=== PATIENT | female | born 1995 | race Caucasian/White ===

== ENCOUNTER 2019-07-01 15:04 | Outpatient (CLI) | payer OTHER | END 2019-07-01 15:05 | disposition home or self-care (01) | LOC: COV 15:04 | PROVIDERS: ATTEND Family Medicine | DX: R05 Cough (principal); R50.9 Fever, unspecified | CPT/HCPCS: 81599 ==

== ENCOUNTER 2020-03-01 09:52 | Outpatient (CLI) | payer OTHER | END 2020-03-01 09:53 | disposition home or self-care (01) | LOC: COV 09:52 | PROVIDERS: ATTEND Family Medicine | DX: R50.9 Fever, unspecified (principal); R05 Cough; R07.0 Pain in throat; R19.7 Diarrhea, unspecified; Z20.828 Contact with and (suspected) exposure to other viral communicable diseases ==